=== PATIENT | male | born 1975 | race Caucasian/White ===

== ENCOUNTER 2017-12-09 16:23 | Inpatient (IN) | payer MEDICAID ==
[~2017-12-09] VITALS: Ht 185.4 cm; Wt 95.3 kg
[2017-12-09 19:00] VITALS: BP 128/83
[2017-12-09 22:57] VITALS: BP 121/68
[2017-12-09 23:11] VITALS: BP 121/68; BMI 27.7
[2017-12-10 09:20] VITALS: BP 109/63
[2017-12-10 09:58] LABS: WBC 6.5 10x3/uL (4.8-10.8)
[2017-12-10 09:59] LABS: BASOPHILS 0.3 % (0-2); EOSINOPHILS 3.5 % (0-7); HEMATOCRIT 44.1 % (42.0-54.0); HEMOGLOBIN 14.7 g/dL (13.5-17.5); IMMATURE GRANULOCYTES 0.2 % (0-5); LYMPHOCYTES 11.4 % (15-50); MCH 26.9 pg (26.0-34.0); MCHC 33.3 g/dL (31.0-37.0); MCV 80.8 fL (80.0-100.0); MEAN PLATELET VOLUME 10.1 fL (7.4-10.4); MONOCYTES 6.6 % (2-11); PLATELET COUNT 215 10x3/uL (130-400); RBC 5.46 10x6/uL (4.20-6.10); RDW 16.8 % (11.5-14.5)
[2017-12-10 10:09] LABS: ANION GAP 11.9 mmol/L (8-16); CALCIUM 8.8 mg/dL (8.5-10.1); CARBON DIOXIDE 27.3 mmol/L (21.0-32.0); CREATININE - SERUM 1.2 mg/dL (0.6-1.3); POTASSIUM - SERUM 4.2 mmol/L (3.5-5.1)
[2017-12-10 12:19] VITALS: BMI 27.7
[2017-12-10 12:48] VITALS: Ht 185.4 cm; Wt 95.3 kg
[2017-12-10 13:20] LABS: % SATURATION 21 % (15-55); IRON 65 ug/dl (35-150); TOTAL IRON BIND CAPACITY 306 ug/dl (260-445); UNSAT IRON BIND CAPACITY 241 ug/dl (150-375)
[2017-12-10 20:00] VITALS: BP 116/63
[2017-12-11] VITALS (10 sets, daily range): BP systolic 102–126; BP diastolic 62–85
[2017-12-11 05:48] LABS: ANION GAP 9.1 mmol/L (8-16); CALCIUM 8.7 mg/dL (8.5-10.1); CREATININE - SERUM 1.2 mg/dL (0.6-1.3); POTASSIUM - SERUM 4.1 mmol/L (3.5-5.1)
[2017-12-11 06:21] LABS: BASOPHILS 0.4 % (0-2); EOSINOPHILS 3.1 % (0-7); HEMATOCRIT 41.2 % (42.0-54.0); HEMOGLOBIN 13.8 g/dL (13.5-17.5); LYMPHOCYTES 14.7 % (15-50); MCHC 33.5 g/dL (31.0-37.0); MCV 80.5 fL (80.0-100.0); NEUTROPHILS 72.8 % (40-80); PLATELET COUNT 216 10x3/uL (130-400); RBC 5.12 10x6/uL (4.20-6.10); RDW 16.7 % (11.5-14.5); WBC 7.5 10x3/uL (4.8-10.8)
[2017-12-11] MEDS ORDERED: COLACE100 MG PO (12:13)
[2017-12-11] MEDS ORDERED: HYDROCODON-ACE1 EAC7 PO (12:14)
== END 2017-12-11 15:50 | disposition home or self-care (01) | DRG 351 ==
LOC: D.ER 16:23 → D.MS 19:09 → D.EDHOLD 19:11 → D.MS 19:14
PROVIDERS: Internal Medicine Nephrology; Surgery
PROC: 0JB80ZZ Excision of Abdomen Subcutaneous Tissue and Fascia, Open Approach (ICD-10-PCS; 2017-12-11)
PROC: 0YU50JZ Supplement Right Inguinal Region with Synthetic Substitute, Open Approach (ICD-10-PCS; principal; 2017-12-11 08:00)
DX: K40.90 Unilateral inguinal hernia, without obstruction or gangrene, not specified as recurrent (principal); F17.213 Nicotine dependence, cigarettes, with withdrawal; D17.5 Benign lipomatous neoplasm of intra-abdominal organs